=== PATIENT | female | born 1940 | race African-American/Black ===

== ENCOUNTER 2019-03-20 07:16 | Emergency (ER) | payer MEDICARE, MEDICAID ==
[~2019-03-20] VITALS: Ht 165.1 cm; Wt 60.0 kg
[~2019-03-20 07:16] MED LIST: LOSA25TA3 PEG; METO25TA6 PEG
[2019-03-20] MEDS ORDERED: EPINEPHRINE 0.1MG/ML (1:10,000) 10ML SYR ONE ×3 (08:03→09:25)
[2019-03-20] MEDS ORDERED: MIDAZOLAM HCL 50 MG in DEXTROSE 5% WATER 40 ML IV ONE (08:30)
[2019-03-20] MEDS ORDERED: DOPAMINE 400MG/250ML PREMIX 250 ML IV ONE ×2 (08:30)
[2019-03-20] MEDS ORDERED: SODIUM CHLORIDE 0.9% 1000ML BAG (SEPSIS BOLUS) IV ONE (08:30)
[2019-03-20] MEDS ORDERED: VANCOMYCIN 1 G PREMIX 200 ML IV ONE (08:30)
[2019-03-20] MEDS ORDERED: FENTANYL CITRATE/PF 50MCG/ML 2ML VIAL IV ONE (08:30)
[2019-03-20] MEDS ORDERED: PIPERACILLIN/TAZ 3.375G PREMIX 50 ML IV ONE (08:30)
[2019-03-20] MEDS ORDERED: MIDAZOLAM 50 MG in DEXTROSE 5% WATER 50ML IV ONE (08:30)
[2019-03-20] MEDS ORDERED: EPINEPHRINE 1 MG in SODIUM CHLORIDE 0.9% 249 ML IV STA ×4 (08:36→10:32)
[2019-03-20 08:37] LABS: MEAN CORPUSCULAR VOLUME 88.7 fL (81.0-99.0); MEAN PLATELET VOLUME 8.8 fl (7.4-10.4); RED BLOOD CELL COUNT 2.16 mill/uL (4.2-5.4); RED CELL DISTRIBUTION WIDTH 17.1 % (11.6-14.6)
[2019-03-20 08:47] LABS: CHLORIDE 97 mEq/L (98-107); INR 1.2
[2019-03-20 08:52] LABS: HEMATOCRIT. 19.1 % (36.0-48.0); HEMOGLOBIN. 6.2 g/dL (12.0-16.0)
[2019-03-20 08:53] LABS: PLATELET 16 x1000/uL (130-400)
[2019-03-20 08:57] VITALS: BP 111/63
[2019-03-20] MEDS ORDERED: SODIUM BICARBONATE 8.4% 1 MEQ/ML 50ML SYR IV ONE ×2 (09:22→10:10)
[2019-03-20 09:27] LABS: NUCLEATED RED BLOOD CELLS 9 /100 WBC
[2019-03-20 09:28] LABS: PLATELET ESTIMATE MARKEDLY DECREASED
[2019-03-20] MEDS ORDERED: NOREPINEPHRINE 4MG/250ML PMX 250 ML IV STA (09:38)
[2019-03-20] MEDS ORDERED: NOREPINEPHRINE 4 MG in DEXT 5% WATER 246 ML IV ONE (09:45)
[2019-03-20 09:48] LABS: BG BASE EXCESS 3.8 mmol/L (-2.0-2.0); BG CARBOXYHEMOGLOBIN 1.6 % (0.5-1.5); BG DEOXYHEMOGLOBIN 13.5 % (0.0-5.0); BG FRACTION INSPIRED OXYGEN 100; BG METHEMOGLOBIN 0.3 % (0.0-1.5); BG OXYGEN SATURATION 86.2 % (92.0-98.5); BG OXYHEMOGLOBIN 84.6 % (94.0-97.0); BG PCO2 73.9 mmHg (35.0-45.0); BG PH 7.255 (7.350-7.450); BG PO2 58.9 mmHg (75.0-100.0); BG SAMPLE SITE RIGHT BRACHIAL; BG TIDAL VOLUME(mL) 400 mL; BG TOTAL HEMOGLOBIN 8.5 g/dL (12.0-18.0); BG VENT MODE VENT - A/C; BG VENT RATE 14 set
[2019-03-20 10:00] LABS: CLARITY URINE TURBID (CLEAR); COLOR URINE YELLOW (YELLOW); KETONES URINE NEGATIVE (NEGATIVE); LEUKOCYTE ESTERASE URINE 3+ (NEGATIVE); NITRITE URINE NEGATIVE (NEGATIVE); OCCULT BLOOD URINE 2+ (NEGATIVE); PH URINE 7.5 (4.5-8.0); PROTEIN URINE 3+ (NEGATIVE); SPECIFIC GRAVITY URINE 1.017 (1.005-1.030)
[2019-03-20] MEDS ORDERED: ATROPINE SULFATE 1MG/10ML SYR ONE (10:20)
== END 2019-03-20 10:28 | disposition expired ==
LOC: ER 07:16 → CANBEDREQ 10:49
DX: J18.9 Pneumonia, unspecified organism (principal); J96.20 Acute and chronic respiratory failure, unspecified whether with hypoxia or hypercapnia; D64.9 Anemia, unspecified; I11.0 Hypertensive heart disease with heart failure; I50.9 Heart failure, unspecified; I25.10 Atherosclerotic heart disease of native coronary artery without angina pectoris; K21.9 Gastro-esophageal reflux disease without esophagitis; Z99.89 Dependence on other enabling machines and devices
CPT/HCPCS: 36415; 36556; 36600; 71045; 80053; 81003; 82375; 82805; 82962; 83605; 84145; 84484; 85025; 85610; 86850; 86900; 86901; 86920; 87040; 87077; 87086; 87186; 92950; 93005; 94002; 99291; 99292; J0461; J1265; J2250; J2543; J3010; J3370; J3490; J7030; J7040; J7050; J7060; P9016; A4315